=== PATIENT | female | born 1955 | race Caucasian/White ===

== ENCOUNTER → 2022-05-09 | Day surgery (SDC) | payer MEDICARE, MEDICAID ==
[~2022-05-09] VITALS: Ht 160 cm; Wt 56.7 kg
[~2022-05-09] MED LIST: ACET-1025 PO; BUSP10TA11 PO; TRAZ-256 PO; fentaNYL/PF 50MCG/1 ML 2ML syringe ONE; heparin sodium, porcine/PF 100unit/ml 5ML syringe ONE; midazolam 1 mg/ML 2ml injection ONE
[2022-05-09 11:09] VITALS: BP 116/66
[2022-05-09 11:51] LABS: BASOPHILS # (AUTO) 0.1 X10'3 (0-0.2); BASOPHILS % (AUTO) 1.1 % (0-1); EOSINOPHILS # (AUTO) 0.2 X10'3 (0-0.9); EOSINOPHILS % (AUTO) 1.7 % (0-6); HEMATOCRIT 36.4 % (35.0-45.0); HEMOGLOBIN 12.3 g/dl (12.0-16.0); LYMPHOCYTES # (AUTO) 3.3 X10'3 (1.1-4.8); LYMPHOCYTES % (AUTO) 31.8 % (21-51); MEAN CORPUSCULAR HEMOGLOBIN 31.7 PG (27.0-31.0); MEAN CORPUSCULAR HGB CONC 33.8 g/dL (33.0-36.5); MEAN CORPUSCULAR VOLUME 93.8 FL (78-98); MEAN PLATELET VOLUME 8.1 FL (7.4-10.4); MONOCYTES # (AUTO) 0.6 X10'3 (0-0.9); MONOCYTES % (AUTO) 6.3 % (2-12); NEUTROPHILS # (AUTO) 6.1 X10'3 (1.8-7.7); NEUTROPHILS % (AUTO) 59.1 % (42-75); PLATELET COUNT 345 X10'3 (140-440); RED BLOOD COUNT 3.88 X10'6 (4.20-5.60); RED CELL DISTRIBUTION WIDTH 14.5 % (11.5-14.5); WHITE BLOOD COUNT 10.3 X10'3 (4.5-11.0)
--- NOTE | 2022-05-09 12:51 | NUR ---
1230 pt left floor for procedure
[2022-05-09 13:15] VITALS: BP_SYST 116; BP_SYST 121; BP_DIAS 66; BP_DIAS 80
[2022-05-09 13:30] VITALS: BP 121/80
--- NOTE | 2022-05-09 13:44 | NUR ---
1315 Pt returned from procedure. VS stable as charted. Pt sitting up in bed, drinking coffee with sister at bedside.
[2022-05-09 13:45] VITALS: BP 118/87
== END | disposition home or self-care (01) ==
LOC: SSTAY O 10:46
PROVIDERS: ATTEND Radiology Vascular & Interventional Radiology
DX: C50.911 Malignant neoplasm of unspecified site of right female breast (principal); F17.210 Nicotine dependence, cigarettes, uncomplicated; Z88.8 Allergy status to other drugs, medicaments and biological substances; Z79.899 Other long term (current) drug therapy; Z98.890 Other specified postprocedural states
CPT/HCPCS: 36415; 36561; 76937; 77001; 85025; 99152; C1769; C1788; C1894; J1642; J2250; J3010; J7030; 99153; A4620